=== PATIENT | male | born 1940 | race Caucasian/White ===

== ENCOUNTER → 2021-09-15 | Outpatient (CLI) | payer OTHER ==
--- NOTE | 2021-09-15 12:00 | 2DMMODE ---
[facility] [address] [facility] [place] [address] 2 D/M-MODE ECHOCARDIOGRAM Name: DIEGO MAR Room #: REG LILLIAM Stuart#: [id number] Admission: 09/15/21 Attend Phys: Saad Wilhelm Discharge: Date of : 44 Report #: [id number] THIS REPORT FOR: cc: FAM - Family physician unknown FAM - Family physician unknown Perry Nolasco MD [facility] ~ APPROVED REPORT Study performed: 09/15/2021 11:28:09 EXAM: Comprehensive 2D, Doppler, and color-flow Echocardiogram Patient Location: Out-Patient Status: routine BSA: 2.26 HR: 88 bpm Rhythm: NSR Indications Ischemic heart disease. Hx: cardiac stents, Afib, ablations. 2D Dimensions RVDd: 39.21 mm IVSd: 13.15 (7-11mm) LVOT Diam: 23.07 (18-24mm) LVDd: 45.13 mm PWd: 9.98 (7-11mm) Ascending Ao: 34.35 (22-36mm) LVDs: 33.81 (25-40mm) Left Atrium: 46.49 (27-40mm) Aortic Root: 39.04 mm Volumes Left Atrial Volume (Systole) Single Plane 4CH: 87.01 mL Single Plane 2CH: 77.86 mL LA ESV Index: 38.00 mL/m2 Aortic Valve AoV Peak Pavan.: 1.22 m/s AO Peak Gr.: 5.97 mmHg LVOT Max P.55 mmHg LVOT Max V: 0.80 m/s NAHEED Vmax: 2.73 cm2 Mitral Valve [facility] [address] [place] [address] 2 D/M-MODE ECHOCARDIOGRAM Name: DIEGO MAR Room #: REG CL [facility]#: [id number] Admission: 09/15/21 Attend Phys: Saad Guzman Discharge: Date of : 44 Report #: [id number] MV Decel. Time: 216.60 ms MV E Max Pavan.: 0.84 m/s Pulmonary Valve PV Peak Pavan.: 0.93 m/s PV Peak Gr.: 3.48 mmHg Tricuspid Valve TR Peak Pavan.: 2.40 m/s RAP Estimate: 5.00 mmHg TR Peak Gr.: 23.00 mmHg PA Pressure: 28.00 mmHg Left Ventricle The left ventricle is normal size. There is normal LV segmental wall motion. Mild basal septal hypertrophy is present. Left ventricular systolic function is normal. LVEF is 55-60%. This study is not technically sufficient to allow evaluation of the LV diastolic function due to atrial fibrillation. Right Ventricle The right ventricle is normal size. The right ventricular systolic function is normal. Atria Mild biatrial enlargement. Aortic Valve Aortic valve is mildly calcified, trileaflet. No aortic regurgitation is present. There is no aortic valvular stenosis. Mitral Valve The mitral valve is normal in structure. Mild mitral regurgitation. Tricuspid Valve The tricuspid valve is normal in structure. Trace to mild tricuspid regurgitation. Estimated PAP is 28mmHg. Pulmonic Valve The pulmonary valve is normal in structure. Mild pulmonic regurgitation. Great Vessels The sinuses are mildly dilated (3.9cm). The ascending aorta is normal in size. IVC is normal in size and collapses >50% with inspiration. [facility] [place] [address] [place] [address] 2 D/M-MODE ECHOCARDIOGRAM Name: ISABELADIEGO Room #: REG [facility]#: [id number] Admission: 09/15/21 Attend Phys: Saad Guzman Discharge: Date of : 44 Report #: [id number] Pericardium There is no pericardial effusion. <Conclusion> Left ventricular systolic function is normal. There is normal LV segmental wall motion. LVEF is 55-60%. Mild biatrial enlargement. Aortic valve is mildly calcified, trileaflet. No aortic regurgitation or stenosis. The mitral valve is normal in structure. Mild mitral regurgitation. Trace to mild tricuspid regurgitation. Estimated pulmonary artery pressure of 28mmHg. There is no pericardial effusion. <ELECTRONICALLY SIGNED> By: Perry Nolasco MD, [facility] 09/15/21 1200 1200 [facility] Perry Nolasco MD, FACC /INF
== END ==
LOC: CV 11:10
PROVIDERS: ATTEND Chiropractor
DX: I08.8 Other rheumatic multiple valve diseases (principal); I25.9 Chronic ischemic heart disease, unspecified